=== PATIENT | male | born 1950 | race Caucasian/White ===

== ENCOUNTER 2020-07-15 08:09 | Day surgery (SDC) | payer OTHER ==
[~2020-07-15] VITALS: Ht 167.6 cm; Wt 103.9 kg
--- NOTE | ~2020-07-15 | O ---
[facility] [place] [address] OPERATIVE REPORT Name: EKATERINA JENKINS Room #: 150-9 [facility]#: [id number] Admission: 07/15/20 Attend Phys: Moises Saavedra MD Discharge: Date of : 50 Report #: [id number] THIS REPORT FOR: cc: [facility] - Family physician unknown FAM - Family physician unknown Moises Saavedra MD ~ CC: [facility] unknown ELIDA Saavedra DATE OF SERVICE: 07/15/2020 SURGEON: Moises Saavedra MD ENGINEERING EQUIPMENT OPERATOR: None. PREOPERATIVE DIAGNOSIS: Bilateral lower lid ectropion. POSTOPERATIVE DIAGNOSIS: Bilateral lower lid ectropion. OPERATION PERFORMED: Bilateral lower lid ectropion repair. ANESTHESIA: Local with IV sedation. COMPLICATIONS: None. INDICATIONS FOR PROCEDURE: This patient has bilateral acquired lower lid ectropion with chronic tearing, keratopathy and discharge. The current procedures are undertaken in order to improve the patient's visual function, lacrimal outflow, and level of comfort. Informed consent was obtained to include but not limit to the risk of loss of vision, bleeding, infection, scarring, failure to improve the problem and need for further surgery. DESCRIPTION OF OPERATION: The patient was taken to the operating room where 2% Xylocaine with epinephrine mixed with equal parts of 0.75% Marcaine with Wydase was administered transcutaneously and transconjunctivally to each lower lid and lateral canthal area. The patient was then prepped and draped in the usual sterile fashion. A Dat clamp was then used to clamp the left lateral canthus following which a sharp canthotomy and cantholysis were performed. The tarsal strip was prepared laterally, removing the lash bearing portion of the redundant lid margin and the redundant tarsal plate. Hemostasis was achieved with a monopolar cautery, as it was throughout the case. The tarsal strip was then secured to the internal portion of the lateral orbital tubercle with two interrupted 5-0 Prolene sutures. The lateral canthal angle was sharply reformed [address] [address] OPERATIVE REPORT Name: EKATERINA JENKINS Room #: 150-9 [facility]#: [id number] Admission: 07/15/20 Attend Phys: Moises Saavedra MD Discharge: Date of : 50 Report #: [id number] as the subcutaneous structures and the skin were closed with multiple interrupted 6-0 plain gut sutures. Attention was then turned to the right side where the same procedure was performed. The wounds were cleaned and dressed with ophthalmic antibiotic ointment. The patient was then transported to the recovery area, having tolerated the procedure well with no anesthetic or operative complications being noted. By: [id number] Moises Saavedra MD /nt
[~2020-07-15 08:09] MED LIST: AVAPRO75 MG PO; BEVACIZUMAB IV; FUROSEMIDE 40 M40 MG PO; NORVASC5 M1 PO; OMEPRAZOLE40 MG PO; PROAIR HFA8.5 GM INH; RESTORIL15 M1 PO; SPIRONOLACTONE50 MG PO
[2020-07-15 09:52] VITALS: BP 132/67
== END 2020-07-15 11:55 | disposition home or self-care (01) ==
LOC: OR 08:09 → TBA 08:18 → OR 09:52
PROVIDERS: ATTEND Ophthalmology
DX: H02.105 Unspecified ectropion of left lower eyelid (principal); H02.102 Unspecified ectropion of right lower eyelid; I11.0 Hypertensive heart disease with heart failure; I50.9 Heart failure, unspecified; J45.909 Unspecified asthma, uncomplicated; F41.9 Anxiety disorder, unspecified; Z98.890 Other specified postprocedural states; Z79.899 Other long term (current) drug therapy; Z96.653 Presence of artificial knee joint, bilateral; Z98.41 Cataract extraction status, right eye; Z87.891 Personal history of nicotine dependence; Z98.42 Cataract extraction status, left eye; Z90.49 Acquired absence of other specified parts of digestive tract; Z88.0 Allergy status to penicillin; Z88.2 Allergy status to sulfonamides
CPT/HCPCS: 50010; 50101; 50386; 50398; 51636; 56527; 56531; 62110; 62850; 70005